=== PATIENT | female | born 1960 | race Caucasian/White ===

== ENCOUNTER 2020-11-06 15:45 | Outpatient (CLI) | payer BC, SELFPAY | END 2020-11-06 15:46 | disposition home or self-care (01) | LOC: ANHCOVIDVC 15:45 | PROVIDERS: PCP Internal Medicine | DX: Z23 Encounter for immunization (principal) | CPT/HCPCS: 0001A; 91300 ==

== ENCOUNTER 2020-11-14 13:02 | Outpatient (CLI) | payer BC, SELFPAY ==
--- NOTE | ~2020-11-14 | CT_ITS ---
EXAMINATION: CT lung screening DATE: 11/14/2020 13:20 INDICATION: Personal history of tobacco dependence TECHNIQUE: Computed tomography (CT) of the chest was performed without intravenous contrast. The dose -length product was 140.67 mGy-cm. Automated exposure control and iterative reconstruction technique were employed. COMPARISON: Chest x-ray dated 11/16/2011 FINDINGS: Heart size is normal. No significant pleural or pericardial effusion. No thoracic lymphaden opathy. There is atherosclerosis of the aorta and coronary arteries. No significant pleural or perica rdial effusion. The upper abdomen is unremarkable. There is emphysema. There is lingular atelectasis/ scarring. There is right lower lobe atelectasis. There is a 3 mm nodule left upper lobe, image 38. Th ere are a few additional 2-3 mm left upper lobe nodules. No endobronchial lesion. No focal consolidat ion. No pneumothorax. IMPRESSION: 1. Lung-RADS category 2: Benign appearance or behavior. Continue annual screening with noncontrast lo w-dose chest CT in 12 months. Reviewed, dictated and finalized at location A. [facility] [employer]IX[employer] OPERATOR IMPRESSION: 1. Lung-RADS category 2: Benign appearance or behavior. Continue annual screeni ng with noncontrast low-dose chest CT in 12 months.
== END 2020-11-14 13:03 | disposition home or self-care (01) ==
LOC: ANHIMG 13:03
PROVIDERS: PCP Internal Medicine; Visit Provider Internal Medicine
DX: Z87.891 Personal history of nicotine dependence (principal)
CPT/HCPCS: 71271

== ENCOUNTER 2020-11-27 15:43 | Outpatient (CLI) | payer BC, SELFPAY | END 2020-11-27 15:44 | disposition home or self-care (01) | LOC: ANHCOVIDVC 15:43 | PROVIDERS: PCP Internal Medicine | DX: Z23 Encounter for immunization (principal) | CPT/HCPCS: 0002A; 91300 ==

== ENCOUNTER 2024-09-04 18:43 | Observation (INO) | payer BC, SELFPAY ==
--- NOTE | ~2024-09-04 | CT_ITS ---
EXAMINATION: CTA chest PE protocol DATE: 09/04/2024 20:02 INDICATION: hyoxia TECHNIQUE: Computed tomography angiography (CTA) of the chest was performed with 200 mL Omnipaque-350 intravenous contrast timed to evaluate the pulmonary arteries. Incomplete field of view of the chest required repeat imaging. The abdomen and pelvis was accidentally scanned and will be reported here. Coronal maximum intensity projection 3D-reconstructions were created by the technologist. The dose-le ngth product (DLP) was 1322.44 mGy-cm. Automated exposure control and iterative reconstruction techni que were employed. COMPARISON: CT lung screening 11/14/2020. FINDINGS: CHEST: Lung parenchyma and airways: Emphysematous change. Mild motion artifact. Scattered areas of tree-in-b ud opacities are present, most notably in the lower lobes. There is bronchial wall thickening and ate lectasis/scar in the right lower lobe. Scattered areas of bronchial debris. Pleura: Unremarkable. Thoracic inlet, axillae and chest wall: No thyroid or soft tissue mass. Thoracic aorta: No significant dilation. No dissection. Mild arch calcification. Mediastinum: Normal. Heart and pericardium: Normal. Coronary artery calcifications: Moderate. Thoracic bones: No acute osseous finding. Pulmonary arteries: Study quality: Adequate. No pulmonary emboli detected. ABDOMEN/PELVIS: Liver: Normal. Biliary/Gallbladder: Gallbladder is normal. No bile duct dilation. Pancreas: No mass or duct dilation. Spleen: Normal. Adrenals:No mass. Kidneys: No suspicious mass, obstructing stone, or hydronephrosis. GI tract: No small or large bowel dilation. Normal appendix. Diverticulosis without diverticulitis. Mesentery/Peritoneum: No ascites, mass, or free air. Retroperitoneum: No mass. Atherosclerotic abdominal aortic and/or arterial calcifications. Pelvis: Pelvic organs are within normal limits. Soft Tissues: Small uncomplicated fat-containing umbilical and bilateral inguinal hernias Abdominopelvic bones: Multilevel moderate degenerative disc disease and moderate facet arthropathy. No severe central canal or neural foraminal narrowing. IMPRESSION: No CT evidence of acute pulmonary embolus. Scattered areas of tree-in-bud opacities and bronchial wall thickening, likely representing chronic i nflammatory/infectious change. Scattered bronchial debris may represent mucoid impaction or aspiration. Reviewed, dictated and finalized at location K. [employer] IMPRESSION: No CT evidence of acute pulmonary embolus. Scattered areas of tree-in-bud opacities and bronchial wall thickening, likely representing chronic inflammatory/infectious change. Scattered bronchial debris may represent mucoid impaction or aspiration.
[2024-09-04 18:51] VITALS: BP 132/84; PULSE 120; RESP 22; TEMP 36.6; O2SAT 93
--- NOTE | 2024-09-04 18:54 | ECG_ITS ---
Test Date: 2024-09-04 19:04:07 Measurements Intervals [place] Rate: 113 P: 61 KS: 152 QRS: 49 QRSD: 85 T: 67 QT: 330 QTc: 453 Interpretive Statements SINUS TACHYCARDIA POSSIBLE LEFT ATRIAL ENLARGEMENT [-0.1mV P WAVE IN V1/V2] LOW QRS VOLTAGE IN EXTREMITY LEADS [QRS DEFLECTION < 0.5 mV IN LIMB LEADS] POSSIBLE ANTERIOR MYOCARDIAL INFARCTION , OF INDETERMINATE AGE [30 ms Q WAVE IN V3/V4, OR R < 0.2 mV IN V4] No previous ECG available for comparison Electronically Signed On 09-04-2024 22:36:05 [employer]ING [employer]IM[employer] by Luis Harrison M.D.
--- NOTE | 2024-09-04 18:55 | ED.SOB ---
HPI - SOB/Dyspnea General Chief Complaint: Shortness of Breath/Dyspnea <May Olvera PA-C - Last Filed: 09/04/24 18:59> Stated Complaint: hypoxia <May Olvera PA-C - Last Filed: 09/04/24 18:59> Time Seen by Provider: 09/04/24 20:16 <aMy Olvera PA-C - Last Filed: 09/04/24 18:59> Focused HPI: 64-year-old female with history of hypertension, hyperlipidemia chronic smoking presents to the emergency department from local urgent care for hypoxia. Patient states for 1 week she has had a productive cough with white sputum and shortness of breath. She presented to urgent care today was found to be hypoxic. States she received 2 breathing treatments with minimal improvement was advised to come to the ED for further evaluation. She states she has been smoking approximately 1 pack a day for the past 4 years. No formal diagnosis of COPD or asthma. She denies lower extremity edema or history of CHF. Admits to remote history of cardiac catheterization. States she has had 2 cataract surgeries in the past 2 months. GENERAL: Well-appearing, well-nourished, and in no acute distress. HEAD: Normocephalic, atraumatic. CHEST: Clear to auscultation. ?No respiratory distress. Satting 88% on room air in speaking in full sentences HEART: Regular rate and rhythm.? NEURO: ?Alert and oriented x3. Patient was placed on 3 L nasal cannula in triage satting 94%. Patient screened in triage and initial orders placed.? ?Additional care and disposition to be based upon?diagnostic testing and treatment. <May Olvera PA-C - Last Filed: 09/04/24 18:59> History of Present Illness HPI Narrative: Agree with HPI. <Daniel Medina MD - Last Filed: 09/04/24 22:11> Related Data Home Medications: Home Medications ?Medication ?Instructions ?Recorded ?Confirmed ?Last Taken ?Type aspirin 81 mg tablet,delayed 81 mg PO DAILY 07/28/19 02/23/24 08/14/19 History release (Abdelrahman Low Dose Aspirin) fluticasone propionate 50 2 spray intranasal DAILY PRN 08/17/23 02/23/24 Unknown History mcg/actuation nasal spray,suspension (Allergy Relief (fluticasone)) <May Olvera PA-C - Last Filed: 09/04/24 18:59> Allergies/Adverse Reactions: Allergies Allergy/AdvReac Type Severity Reaction Status Date / Time No Known Allergies Allergy Verified 02/23/24 13:22 <May Olvera PA-C - Last Filed: 09/04/24 18:59> Review of Systems Review of Systems: All systems reviewed & are unremarkable except as noted in HPI and below <Daniel Medina MD - Last Filed: 09/04/24 22:11> Constitutional: Constitutional: Reports no additional constitutional complaints <Daniel Medina MD - Last Filed: 09/04/24 22:11> Cardiovascular: Cardiovascular: Reports no additional cardiovascular complaints <Daniel Medina MD - Last Filed: 09/04/24 22:11> Respiratory: Respiratory: Reports chest congestion, Reports cough, Reports dyspnea and Reports wheezing <Daniel Medina MD - Last Filed: 09/04/24 22:11> Gastrointestinal: Gastrointestinal: Reports no additional gastrointestinal complaints <Daniel Medina MD - Last Filed: 09/04/24 22:11> Musculoskeletal: Musculoskeletal: Reports no additional musculoskeletal complaints <Daniel Medina MD - Last Filed: 09/04/24 22:11> [facility] Past Medical History Medical History: Medical History (Updated 09/04/24 @ 22:11 by Daniel Medina MD) Dyslipidemia Hypertension <May Olvera PA-C - Last Filed: 09/04/24 18:59> Surgical History Surgical History: Surgical History S/P arthroscopy of left knee H/O cardiac catheterization <May Olvera PA-C - Last Filed: 09/04/24 18:59> Family History Family History: Family History Father Family history of heart disease in male family member before age 55 Family history of throat cancer Hypertension Mother Hypertension History of blood clots Sibling Hypertension Sibling Hypertension <May Olvera PA-C - Last Filed: 09/04/24 18:59> Social History Social History: Social History Social History: 2-3 drinks every other day Smoking packs per day: 0.5 Smoking cigarettes per day: 10.0 Years smoked: 43 Smoking pack-years: 21.50 Smoking status: Current some day smoker Tobacco type: cigarettes Second hand tobacco smoke exposure: Yes Alcohol intake: current Drinks per week: 2 Substance use: never Substance use type: does not use Lack of Transportation: No Lack of Food: Never True Current Housing: I Have Housing Concerned About Future Housing: No Difficulty Paying Gas/Electric Bills: No Difficulty Paying for Meds: No Currently Unemployed: No Education: Trade/Vocational Certificate Difficulty w/ Childcare or Family Care: No Gender identity (if verbalized by the patient): Female Spiritual care concerns: No Agree to blood products: Yes <May Olvera PA-C - Last Filed: 09/04/24 18:59> Exam Narrative: GENERAL: Fatigued-appearing, well-nourished, and in no acute distress. HEAD: Normocephalic, atraumatic. ENT: Mucous membranes moist. NECK: Supple. CHEST: diffuse wheezing. No respiratory distress. HEART: tachycardic regular. Normal peripheral pulses. ABDOMEN: Soft, nontender, nondistended. EXTREMITIES: Normal range of motion. No edema. SKIN: Warm, dry, no rash. NEURO: Alert and oriented x3. PSYCH: Normal mood and affect. <Daniel Medina MD - Last Filed: 09/04/24 22:11> Course Course Emergency Course: patient resting comfortably. Informed of results. Admit to hospitalist service. IV antibiotics for pneumonia. <Daniel Medina MD - Last Filed: 09/04/24 22:11> Vital Signs Vital signs: Vital Signs Temperature 97.9 F 09/04/24 18:51 Pulse Rate 120 H 09/04/24 18:51 Respiratory Rate 22 H 09/04/24 18:51 Blood Pressure 132/84 09/04/24 18:51 Pulse Oximetry 93 09/04/24 18:51 Temperature 97.9 F 09/04/24 18:51 Pulse Rate 114 H 09/04/24 21:56 Respiratory Rate 18 09/04/24 21:56 Blood Pressure 138/78 09/04/24 21:56 Pulse Oximetry 96 09/04/24 21:56 Oxygen Delivery Room Air 09/04/24 21:09 Oxygen Flow Rate 3 09/04/24 19:00 <May Olvera PA-C - Last Filed: 09/04/24 18:59> Vital Signs Temperature 97.9 F 09/04/24 18:51 Pulse Rate 120 H 09/04/24 18:51 Respiratory Rate 22 H 09/04/24 18:51 Blood Pressure 132/84 09/04/24 18:51 Pulse Oximetry 93 09/04/24 18:51 Temperature 97.9 F 09/04/24 18:51 Pulse Rate 114 H 09/04/24 21:56 Respiratory Rate 18 09/04/24 21:56 Blood Pressure 138/78 09/04/24 21:56 Pulse Oximetry 96 09/04/24 21:56 Oxygen Delivery Room Air 09/04/24 21:09 Oxygen Flow Rate 3 09/04/24 19:00 <Daniel Medina MD - Last Filed: 09/04/24 22:11> MDM - SOB/Dyspnea Lab Data Result diagrams: 09/04/24 19:14 09/04/24 19:14 <May Olvera PA-C - Last Filed: 09/04/24 18:59> Labs: Lab Results 09/04/24 09/04/24 Range/Units 19:14 20:10 WBC 12.8 H (4.5-10.0) K/mm3 RBC 5.33 (4.2-5.4) M/mm3 Hgb 18.1 H D (12.0-15.0) g/dL Hct 51.5 H (37.0-47.0) % MCV 96.6 (80-100) fl MCH 34.0 (26-34) pg MCHC 35.1 (32-36) g/dl RDW 12.6 (11.5-14.5) % Plt Count 381 H (150-375) k/mm3 MPV 9.8 (7.4-10.4) fl Immature Gran % (Auto) 0.4 (0-0.5) % Neut % (Auto) 72.4 (45.5-73.1) % Lymph % (Auto) 16.8 L (18.3-44.2) % [place] % (Auto) 6.6 (2.6-8.5) % Eos % (Auto) 3.4 (0-4.4) % Baso % (Auto) 0.4 (0.2-1.2) % Lymph # (Auto) 2.14 (0.9-3.2) K/mm3 [place] # (Auto) 0.8 H (0.1-0.6) K/mm3 Eos # (Auto) 0.4 H (0-0.3) K/mm3 Baso # (Auto) 0.1 (0.0-0.1) K/mm3 Abs Immat Gran (auto) 0.05 H (0.00-0.031) K/mm3 Absolute Neuts (auto) 9.3 H (1.3-6.7) K/mm3 Absolute Nucleated RBC 0.000 (0.0-0.012) K/mm3 Nucleated RBC % 0.0 (0.0-0.2) % PT 13.1 (11.1-14.7) Seconds INR 0.9 APTT 24.7 (22.3-36.8) Seconds Sodium 135 L (137-145) mmol/L Potassium 3.0 L (3.4-5.0) mmol/L Chloride 97 L (98-107) mmol/L Carbon Dioxide 28 (22-30) mmol/L Anion Gap 10 (4-12) mmol/L BUN 12 D (7-17) mg/dL Creatinine 0.70 (0.7-1.0) mg/dL Estim Creat Clear Calc 76 ml/min Estimated GFR > 60 (59 - ) Glucose 154 H (65-110) mg/dL Calcium 10.2 (8.4-10.2) mg/dL Total Bilirubin 0.8 (0.2-1.3) mg/dL AST 53 H (14-36) U/L ALT 63 H (6-35) U/L Alkaline Phosphatase 136 H (38-126) U/L Troponin I < 0.012 (0.000-0.034) ng/mL NT-Pro-B Natriuret Pep 66 (19.9-100) pg/mL Total Protein 9.0 H (6.3-8.2) g/dL Albumin 4.9 (3.5-5.1) g/dL Influenza A (RT-PCR) Negative (Negative) Influenza B (RT-PCR) Negative (Negative) RSV (RT-PCR) Negative (Negative) SARS-CoV-2 RNA (RT-PCR) Negative (Negative) <May Olvera PA-C - Last Filed: 09/04/24 18:59> Lab Results 09/04/24 09/04/24 Range/Units 19:14 20:10 WBC 12.8 H (4.5-10.0) K/mm3 RBC 5.33 (4.2-5.4) M/mm3 Hgb 18.1 H D (12.0-15.0) g/dL Hct 51.5 H (37.0-47.0) % MCV 96.6 (80-100) fl MCH 34.0 (26-34) pg MCHC 35.1 (32-36) g/dl RDW 12.6 (11.5-14.5) % Plt Count 381 H (150-375) k/mm3 MPV 9.8 (7.4-10.4) fl Immature Gran % (Auto) 0.4 (0-0.5) % Neut % (Auto) 72.4 (45.5-73.1) % Lymph % (Auto) 16.8 L (18.3-44.2) % [place] % (Auto) 6.6 (2.6-8.5) % Eos % (Auto) 3.4 (0-4.4) % Baso % (Auto) 0.4 (0.2-1.2) % Lymph # (Auto) 2.14 (0.9-3.2) K/mm3 [place] # (Auto) 0.8 H (0.1-0.6) K/mm3 Eos # (Auto) 0.4 H (0-0.3) K/mm3 Baso # (Auto) 0.1 (0.0-0.1) K/mm3 Abs Immat Gran (auto) 0.05 H (0.00-0.031) K/mm3 Absolute Neuts (auto) 9.3 H (1.3-6.7) K/mm3 Absolute Nucleated RBC 0.000 (0.0-0.012) K/mm3 Nucleated RBC % 0.0 (0.0-0.2) % PT 13.1 (11.1-14.7) Seconds INR 0.9 APTT 24.7 (22.3-36.8) Seconds Sodium 135 L (137-145) mmol/L Potassium 3.0 L (3.4-5.0) mmol/L Chloride 97 L (98-107) mmol/L Carbon Dioxide 28 (22-30) mmol/L Anion Gap 10 (4-12) mmol/L BUN 12 D (7-17) mg/dL Creatinine 0.70 (0.7-1.0) mg/dL Estim Creat Clear Calc 76 ml/min Estimated GFR > 60 (59 - ) Glucose 154 H (65-110) mg/dL Calcium 10.2 (8.4-10.2) mg/dL Total Bilirubin 0.8 (0.2-1.3) mg/dL AST 53 H (14-36) U/L ALT 63 H (6-35) U/L Alkaline Phosphatase 136 H (38-126) U/L Troponin I < 0.012 (0.000-0.034) ng/mL NT-Pro-B Natriuret Pep 66 (19.9-100) pg/mL Total Protein 9.0 H (6.3-8.2) g/dL Albumin 4.9 (3.5-5.1) g/dL Influenza A (RT-PCR) Negative (Negative) Influenza B (RT-PCR) Negative (Negative) RSV (RT-PCR) Negative (Negative) SARS-CoV-2 RNA (RT-PCR) Negative (Negative) <Daniel Medina MD - Last Filed: 09/04/24 22:11> ABG Data ABG results: 09/04/24 20:41 Puncture Site Right radial ABG pH 7.466 H ABG pCO2 40.5 ABG pO2 48.6 L* ABG PO2/FiO2 Ratio 2.31 ABG HCO3 28.5 H ABG O2 Saturation 86.6 L* ABG O2 Content 20.1 ABG Base Excess 4.5 A-a Gradient 52.6 Oxyhemoglobin 85.0 L* Total Hemoglobin 16.9 O2 Delivery Device Not Reportable O2 Liters/Min Not Reportable FiO2 21 <May Olvera PA-C - Last Filed: 09/04/24 18:59> 09/04/24 20:41 Puncture Site Right radial ABG pH 7.466 H ABG pCO2 40.5 ABG pO2 48.6 L* ABG PO2/FiO2 Ratio 2.31 ABG HCO3 28.5 H ABG O2 Saturation 86.6 L* ABG O2 Content 20.1 ABG Base Excess 4.5 A-a Gradient 52.6 Oxyhemoglobin 85.0 L* Total Hemoglobin 16.9 O2 Delivery Device Not Reportable O2 Liters/Min Not Reportable FiO2 21 <Daniel Medina MD - Last Filed: 09/04/24 22:11> Imaging Data Radiologist's impression: ITS Impressions Chest CTA 09/04/24 20:18 IMPRESSION: No CT evidence of acute pulmonary embolus. Scattered areas of tree-in-bud opacities and bronchial wall thickening, likely representing chronic inflammatory/infectious change. Scattered bronchial debris may represent mucoid impaction or aspiration. <Daniel Medina MD - Last Filed: 09/04/24 22:11> ECG Data EKG #1: ECG completion date: 09/04/24 <Daniel Medina MD - Last Filed: 09/04/24 22:11> ECG completion time: 19:04 <Daniel Medina MD - Last Filed: 09/04/24 22:11> EKG Interpretation: tachycardia (113), sinus rhythm, non-specific ST changes, normal QRS, normal QT and NL axis <Daniel Medina MD - Last Filed: 09/04/24 22:11> Discharge Plan Discharge Clinical Impression: Pneumonia, Hypoxia <May Olvera PA-C - Last Filed: 09/04/24 18:59> Patient Disposition: Still a Patient <May Olvera PA-C - Last Filed: 09/04/24 18:59> Condition: Stable <May Olvera PA-C - Last Filed: 09/04/24 18:59> Patient Language: Irish <ANGE Conte Last Filed: 09/04/24 18:59> Prescriptions: No Action fluticasone propionate [Allergy Relief (fluticasone)] 50 mcg/actuation spray,suspension 2 spray intranasal DAILY PRN Rx Instructions: administer into each nostril aspirin [Abdelrahman Low Dose Aspirin] 81 mg Tablet,Delayed Release (Dr/Ec) 81 mg PO DAILY omega-3 fatty acids [Fish Oil Concentrate] 1,000 mg capsule 1,000 mg PO DAILY Qty: 90 1RF pravastatin 80 mg tablet See Rx Instructions .ROUTE .COMPLEX Qty: 90 0RF Dose Instruction: Take 1 tablet by mouth once daily Rx Instructions: Take 1 tablet by mouth once daily amlodipine 10 mg tablet See Rx Instructions .ROUTE .COMPLEX Qty: 90 0RF Dose Instruction: Take 1 tablet by mouth once daily Rx Instructions: Take 1 tablet by mouth once daily irbesartan-hydrochlorothiazide 300-12.5 mg tablet See Rx Instructions .ROUTE .COMPLEX Qty: 30 0RF Dose Instruction: Take 1 tablet by mouth once daily Rx Instructions: Take 1 tablet by mouth once daily <May Olvera PA-C - Last Filed: 09/04/24 18:59> Follow-up/Referrals: Caroline Garcia APRN [Primary Care Provider] - <May Olvera PA-C - Last Filed: 09/04/24 18:59>
[2024-09-04 18:56] VITALS: O2SAT 93
[2024-09-04 19:00] VITALS: O2SAT 94
[2024-09-04 19:20] LABS: Basophils Absolute Auto 0.1 K/mm3 (0.0-0.1); Basophils Percent Auto 0.4 % (0.2-1.2); Eosinophils Absolute Auto 0.4 K/mm3 (0-0.3); Eosinophils Percent Auto 3.4 % (0-4.4); Hematocrit 51.5 % (37.0-47.0); Hemoglobin 18.1 g/dL (12.0-15.0); Immature Granulocyte Absolute 0.05 K/mm3 (0.00-0.031); Immature Granulocyte Percent A 0.4 % (0-0.5); Lymphocytes Absolute Auto 2.14 K/mm3 (0.9-3.2); Lymphocytes Percent Auto 16.8 % (18.3-44.2); Mean Corpuscular HGB Conc 35.1 g/dl (32-36); Mean Corpuscular Volume 96.6 fl (80-100); Mean Platelet Volume 9.8 fl (7.4-10.4); Monocytes Absolute Auto 0.8 K/mm3 (0.1-0.6); Monocytes Percent Auto 6.6 % (2.6-8.5); Neutrophils Absolute Auto 9.3 K/mm3 (1.3-6.7); Neutrophils Percent Auto 72.4 % (45.5-73.1); Platelet Count Result 381 k/mm3 (150-375); Red Blood Count 5.33 M/mm3 (4.2-5.4); Red Cell Distribution Width 12.6 % (11.5-14.5); White Blood Count 12.8 K/mm3 (4.5-10.0)
[2024-09-04 19:29] LABS: Alanine Aminotransferase 63 U/L (6-35); Albumin Level 4.9 g/dL (3.5-5.1); Alkaline Phosphatase 136 U/L (38-126); Anion Gap 10 mmol/L (4-12); Aspartate Amino Transferase 53 U/L (14-36); Bilirubin,Total 0.8 mg/dL (0.2-1.3); Blood Urea Nitrogen 12 mg/dL (7-17); Calcium 10.2 mg/dL (8.4-10.2); Carbon Dioxide 28 mmol/L (22-30); Chloride 97 mmol/L (98-107); Estimated CRCL calculation 76 ml/min; Estimated Glomerular Filt Rate > 60; Glucose 154 mg/dL (65-110); Sodium 135 mmol/L (137-145)
[2024-09-04 19:31] LABS: INR 0.9; Partial Thromboplastin Time 24.7 Seconds (22.3-36.8); Prothrombin Time 13.1 Seconds (11.1-14.7)
[2024-09-04 19:40] LABS: NT Pro B Type Natriuretic Pept 66 pg/mL (19.9-100); Troponin I < 0.012 ng/mL (0.000-0.034)
[2024-09-04] MEDS: methylPREDNISolone SOD SUCC 125 MG VIAL IV PUSH (20:32)
[2024-09-04] MEDS: IPRATROPIUM 0.5 MG/ALBUTEROL SULFATE 2.5 MG AMPUL.NEB 3 ML INHALATION (20:42)
[2024-09-04 20:52] LABS: Influenza A QL RT-PCR Negative (Negative); Influenza B QL RT-PCR Negative (Negative); RSV RNA, RT-PCR Negative (Negative); SARS-CoV-2 RNA PCR Negative (Negative)
[2024-09-04] MEDS: ALBUTEROL SULFATE NEB 2.5 MG/3 ML INH 10 MG INHALATION (20:58)
[2024-09-04 21:04] LABS: Alveolar/Arterial O2 Gradient 52.6 mmHg; Base Excess ABG 4.5 mEq/l (+/-2.0); Fractional Inspired Oxygen 21 %; HCO3 ABG 28.5 mEq/l (22.0-26.0); Oxygen Content ABG 20.1 %vol (16.0-22.0); PCO2 ABG 40.5 mmHg (35.0-45.0); PO2 FiO2 Ratio Arterial Blood 2.31 %; Total Hemoglobin 16.9 g/dL (12.0-18.0); pH ABG 7.466 (7.350-7.450)
[2024-09-04 21:07] LABS: Oxygen Saturation ABG 86.6 % (95.0-100.0); PO2 ABG 48.6 mmHg (80.0-100.0)
[2024-09-04 21:08] LABS: Modified Allen's Test Pass; Site Drawn RIGHT RADIAL
[2024-09-04 21:09] VITALS: O2SAT 93
[2024-09-04] MEDS: POTASSIUM CHLORIDE 20 MEQ ER TABLET 40 MEQ PO (21:55)
[2024-09-04 21:56] VITALS: BP 138/78; PULSE 114; RESP 18; O2SAT 96
[2024-09-04] MEDS: AZITHROMYCIN 500 MG/NS 250 ML 500 MG/250 ML BAG 250 MG IVPB (22:29)
[2024-09-04 23:30] LABS: Device ROOM AIR
[2024-09-04 23:50] VITALS: BP 126/73; PULSE 111; RESP 20; TEMP 36.6; O2SAT 91
--- NOTE | 2024-09-04 23:50 | ADMGEN ---
This patient, Rula Watkins, was admitted to [facility] Surg Room 320-01. Patient/family oriented to hospital policies and general routines including ID bracelet, bed and alarms, visiting hours, pain management, procedures, bathroom and other care routines, personal items, smoking policy, room service/diet, and visiting hours. Information on how to activate the Rapid Response Team has been discussed. Patient/Family are encouraged to report perceived risks to care and to ask questions if they do not understand what they are told or what they should do.
--- NOTE | 2024-09-04 23:54 | PM.IMHP ---
H&P: HPI History of Present Illness Date/Time: 09/04/24 21:30 Chief Complaint: Cough, congestion, shortness of breath. Narrative: This is a 64-year-old female smoker with hypertension, dyslipidemia, and prediabetes to presented to the emergency department via private vehicle for evaluation of cough, congestion, and shortness of breath. She gives a 1 week history of head congestion, cough productive of clear to whitish colored sputum, wheezing, dyspnea on exertion, generalized headache, and poor appetite. She has been taking [id number] Coricidin, Mucinex, and Mucinex DM without much improvement her symptoms. Today she went to urgent care, was hypoxic, and was directed to the ED. She denies fever, chills, sweats, pleuritic pain, palpitations, nausea, vomiting, and diarrhea. has had similar symptoms. She has no known history of asthma or COPD. In the ED: She was afebrile on arrival with stable blood pressures. She is currently on 3 L nasal cannula with an SpO2 of 91%. Labs were significant for a WBC count of 12.8, hemoglobin 18.1, sodium 135, potassium 3.0, chloride 97, glucose 154, AST 53, ALT 63, alkaline phosphatase 136. She tested negative for influenza, RSV, and COVID. Chest CTA showed no evidence of acute pulmonary embolus but did show scattered areas of tree-in-bud opacities and bronchial wall thickening and scattered bronchial debris which may represent mucoid impaction for aspiration. She received a continuous nebulizer treatment, methylprednisolone 125 mg, azithromycin 500 mg, delete ceftriaxone 1 g, and potassium chloride 40 mg. She is being admitted in this setting for further treatment. Review of Systems Review of Systems: 12 systems were reviewed and are negative except for as per HPI. [facility] Past Medical History Medical History (Updated 09/05/24 @ 03:08 by Che Zapien PA-C) Hyperlipidemia Prediabetes Spontaneous pneumothorax Nicotine dependence Dyslipidemia Hypertension Surgical History Surgical History (Updated 09/05/24 @ 03:03 by Che Zapien PA-C) History of arthroscopy of left knee History of cardiac catheterization Family History Family History Father Family history of heart disease in male family member before age 55 Family history of throat cancer Hypertension Mother History of blood clots Hypertension Diverticulitis Sibling Hypertension Sibling Hypertension Social History Social History (Updated 09/05/24 @ 03:04 by Che Zapien PA-C) Social History: Surrogate medical decision maker: Jose Francisco Watkins, spouse. Code status: Full code. Smoking packs per day: 1 Smoking cigarettes per day: 20.0 Years smoked: 40 Smoking pack-years: 40.00 Smoking status: Current every day smoker Tobacco type: cigarettes Second hand tobacco smoke exposure: Yes Alcohol intake: current Drinks per week: 28 Substance use: current Substance use type: marijuana Other substance usage details: 08/30/2024 Do You Feel Safe in your Home?: Yes Lack of Transportation: No Lack of Food: Never True Current Housing: I Have Housing Concerned About Future Housing: No Difficulty Paying Gas/Electric Bills: No Difficulty Paying for Meds: No Currently Unemployed: No Education: Associate Degree Difficulty w/ Childcare or Family Care: No Spiritual care concerns: No Agree to blood products: Yes Meds Home Medications and Allergies Home Medications ?Medication ?Instructions ?Recorded ?Confirmed ?Type aspirin 81 mg tablet,delayed 81 mg PO DAILY 07/28/19 09/05/24 History release (Abdelrahman Low Dose Aspirin) omega-3 fatty acids 1,000 mg 1,000 mg PO DAILY #90 caps 11/22/19 09/05/24 Rx capsule (Fish Oil Concentrate) fluticasone propionate 50 2 spray intranasal DAILY PRN nasal 08/17/23 09/05/24 History mcg/actuation nasal congestion spray,suspension (Allergy Relief (fluticasone)) amlodipine 10 mg tablet See Rx Instructions .Route 07/10/24 09/05/24 Rx .COMPLEX #90 tabs pravastatin 80 mg tablet See Rx Instructions .Route 07/10/24 09/05/24 Rx .COMPLEX #90 tabs irbesartan 300 See Rx Instructions .Route 08/09/24 09/05/24 Rx mg-hydrochlorothiazide 12.5 mg .COMPLEX #30 tabs tablet carboxymethylcellulose sodium 1 % 1 drp RIGHT EYE BID-TID PRN dry 09/05/24 09/05/24 History eye drops (Artificial Tears eye(s) (carboxymethylcellulose)) prednisolone acetate 1 % eye 1 drp RIGHT EYE TID 09/05/24 09/05/24 History drops,suspension Allergies Allergy/AdvReac Type Severity Reaction Status Date / Time No Known Allergies Allergy Verified 02/23/24 13:22 Vital Signs Vital Signs - 24 hr 09/04/24 18:51 09/04/24 18:56 09/04/24 19:00 Temperature 97.9 F Pulse Rate 120 H Respiratory Rate 22 H Blood Pressure 132/84 Pulse Oximetry 93 93 94 Oxygen Delivery Nasal Cannula Nasal Cannula Oxygen Flow Rate 2 3 09/04/24 21:09 09/04/24 21:56 Temperature Pulse Rate 114 H Respiratory Rate 18 Blood Pressure 138/78 Pulse Oximetry 93 96 Oxygen Delivery Room Air Oxygen Flow Rate Exam Narrative: General: Mildly ill-appearing female sitting up in bed in no distress. Weight: 84.4 kg. BMI: 30.0. HEENT: PERRL, EOMI. Sclera anicteric. Conjunctiva mildly injected. Tacky mucous membranes. Oropharynx is erythematous without exudates. Neck: Supple. No lymphadenopathy or JVD. Respiratory: Respirations are nonlabored and she is speaking in full sentences. Lung sounds are significantly diminished throughout with scattered expiratory wheezing and occasional rales. Cardiovascular: Tachycardic with normal S1-S2. Gastrointestinal: Abdomen is soft, nontender, and nondistended with positive bowel sounds. Skin: Warm and dry. Normal capillary refill. Extremities: No cyanosis, clubbing, or edema. Radial and pedal pulses intact. No palpable knots or cords. Negative Remington sign bilaterally Neurological: Alert. Cranial nerves 2-12 are grossly intact. No gross focal deficits to casual conversation. Psychiatric: Pleasant and cooperative with normal mood and affect. Judgment and insight intact. H&P: Results Labs Labs: Short CBC 09/04/24 Range/Units 19:14 WBC 12.8 H (4.5-10.0) K/mm3 Hgb 18.1 H D (12.0-15.0) g/dL Hct 51.5 H (37.0-47.0) % Plt Count 381 H (150-375) k/mm3 BMP 09/04/24 19:14 Sodium 135 L Potassium 3.0 L Chloride 97 L Carbon Dioxide 28 BUN 12 D Creatinine 0.70 Glucose 154 H Calcium 10.2 Cardiac Enzymes 09/04/24 Range/Units 19:14 Troponin I < 0.012 (0.000-0.034) ng/mL Liver Function 09/04/24 Range/Units 19:14 Total Bilirubin 0.8 (0.2-1.3) mg/dL AST 53 H (14-36) U/L ALT 63 H (6-35) U/L Alkaline Phosphatase 136 H (38-126) U/L Albumin 4.9 (3.5-5.1) g/dL Impressions Chest CTA 09/04/24 20:18 IMPRESSION: No CT evidence of acute pulmonary embolus. Scattered areas of tree-in-bud opacities and bronchial wall thickening, likely representing chronic inflammatory/infectious change. Scattered bronchial debris may represent mucoid impaction or aspiration. Assessment and Plan Assessment and plan (1) Acute bronchitis: Code(s): J20.9 - Acute bronchitis, unspecified Status: Acute (2) Suspected chronic obstructive pulmonary disease based on initial evaluation: Code(s): J44.9 - Chronic obstructive pulmonary disease, unspecified Status: Acute (3) Mild dehydration: Code(s): E86.0 - Dehydration Status: Acute (4) Hypokalemia: Code(s): E87.6 - Hypokalemia Status: Acute (5) Elevated LFTs: Code(s): R79.89 - Other specified abnormal findings of blood chemistry Status: Acute (6) Polycythemia: Code(s): D75.1 - Secondary polycythemia Status: Acute (7) Prediabetes: Code(s): R73.03 - Prediabetes Status: Acute (8) Hypertension: Code(s): I10 - Essential (primary) hypertension Status: Acute (9) Hyperlipidemia: Code(s): E78.5 - Hyperlipidemia, unspecified Status: Acute (10) Tobacco dependence: Code(s): F17.200 - Nicotine dependence, unspecified, uncomplicated Status: Acute (11) Hypoxia: Code(s): R09.02 - Hypoxemia Status: Acute Plan The patient presented to the emergency department for evaluation of cough, congestion, and shortness of breath as detailed in HPI. Labs, imaging, EKG, and all reports were personally reviewed. She is delighted long-time smoker and she likely has underlying COPD for which she will need formal outpatient pulmonary function test. Her history is consistent with an acute bronchitis, probably viral although her influenza, RSV, and COVID were negative. Continue with empiric antibiotics for now pending sputum culture. Continue scheduled bronchodilators and methylprednisolone. Cornet and Mucinex ordered to help mobilize secretions. Smoking cessation is imperative and was discussed. She declines the need for nicotine patch at this moment. She looks dry on exam and by history and will be hydrated overnight. Potassium is low, was replaced, and will be monitored. Polycythemia may very well be due to chronic hypoxia although she is likely a bit hemoconcentrated due to mild dehydration. ABG consistent with a venous draw but she will need a home oxygen 30 prior to discharge. Wean oxygen as tolerated. AST and ALT are mildly elevated though her abdominal exam is benign and stable just monitor for now. Initiate sliding scale insulin, Accu-Cheks, and hypoglycemic protocol as she is receiving steroids. Check hemoglobin A1c. Blood pressures were reviewed and they are stable. Her home medications will be reviewed and resumed as appropriate. Findings and treatment plan were discussed with the patient. Questions were solicited and answered to satisfaction. The patient's medical management will be taken over by the hospitalist team in a.m. Quality VTE Prophylaxis VTE prophylaxis: pharmacologic ordered The patient has been admitted under observation status. Hospitalist [facility] Advance Care Plan I have confirmed that the patient's Advanced Care Plan is present, code status is documented, or surrogate decision maker is listed in patient medical record.: Yes Medication Reconciliation I have utilized all available resources to obtain, update and review the patients current medications (includes all prescriptions, OTC, herbals, cannabis, and nutritional supplements).: Yes
[2024-09-05] VITALS (11 sets, daily range): BP systolic 125–138; BP diastolic 51–78; PULSE 84–111; RESP 18–20; TEMP 36.3–36.7; O2SAT 91–100
--- NOTE | 2024-09-05 04:03 | PCRCNOTE ---
ABG delayed because the ABG was ordered while the pt was in the waiting room.
[2024-09-05] MEDS: SODIUM CHLORIDE 0.9% IV 1,000 ML 150 ML IV CONT (04:09)
[2024-09-05] MEDS: methylPREDNISolone SOD SUCC 125 MG VIAL 60 MG IV PUSH ×4 (04:09→21:08)
[2024-09-05 05:07] LABS: Strep Group A RT-PCR NOT DETECTED (Negative)
[2024-09-05 05:51] LABS: MRSA (PCR) NOT DETECTED (NOT DETECTE)
[2024-09-05 07:07] LABS: Hemoglobin A1C 6.1 % (<5.7)
[2024-09-05 07:46] LABS: Hematocrit 44.4 % (37.0-47.0); Hemoglobin 15.5 g/dL (12.0-15.0); Mean Corpuscular HGB Conc 34.9 g/dl (32-36); Mean Corpuscular Hemoglobin 33.9 pg (26-34); Mean Corpuscular Volume 97.2 fl (80-100); Mean Platelet Volume 10.4 fl (7.4-10.4); Platelet Count Result 333 k/mm3 (150-375); Red Blood Count 4.57 M/mm3 (4.2-5.4); Red Cell Distribution Width 12.5 % (11.5-14.5)
[2024-09-05 08:04] LABS: Alanine Aminotransferase 44 U/L (6-35); Albumin Level 4.4 g/dL (3.5-5.1); Alkaline Phosphatase 105 U/L (38-126); Anion Gap 6 mmol/L (4-12); Aspartate Amino Transferase 37 U/L (14-36); Bilirubin,Total 0.4 mg/dL (0.2-1.3); Blood Urea Nitrogen 14 mg/dL (7-17); Calcium 9.3 mg/dL (8.4-10.2); Carbon Dioxide 28 mmol/L (22-30); Chloride 100 mmol/L (98-107); Creatine Kinase 207 U/L (30-135); Estimated CRCL calculation 88 ml/min; Estimated Glomerular Filt Rate > 60; Glucose 257 mg/dL (65-110); Potassium 3.2 mmol/L (3.4-5.0); Sodium 134 mmol/L (137-145)
[2024-09-05] MEDS: IPRATROPIUM 0.5 MG/ALBUTEROL SULFATE 2.5 MG AMPUL.NEB 3 ML INHALATION ×3 (08:10→22:00)
[2024-09-05] MEDS: guaiFENesin 12 HR 600 MG TABCR 1200 MG PO ×2 (08:36→21:08)
[2024-09-05] MEDS: OMEGA 3 POLYUNSAT FATTY ACIDS 1 GM CAP PO (08:36)
[2024-09-05] MEDS: PRAVASTATIN SODIUM 20 MG TABLET 80 MG BY MOUTH (08:36)
[2024-09-05] MEDS: POTASSIUM CHLORIDE 20 MEQ ER TABLET 40 MEQ PO (08:36)
[2024-09-05] MEDS: amLODIPine BESYLATE 5 MG TABLET 10 MG BY MOUTH (08:37)
[2024-09-05] MEDS: prednisoLONE ACETATE 1% OPHTH 5 ML 1 DROP RIGHT EYE ×3 (08:37→16:57)
[2024-09-05] MEDS: ASPIRIN 81 MG ENTERIC TABLET PO (08:37)
[2024-09-05] MEDS: ENOXAPARIN 40 MG/0.4 ML SYRINGE SUB-Q (08:37)
[2024-09-05 08:44] LABS: Glucose Point of Care 263 mg/dl (65-105)
--- NOTE | 2024-09-05 11:19 | PCSTNOTE ---
Please refer to the Bedside Swallow Evaluation in the EMR. Please note, silent aspiration cannot be ruled out at bedside.
--- NOTE | 2024-09-05 12:22 | PM.IMPN ---
Progress Note: A&P Assessment and Plan (1) Hypoxia: Code(s): R09.02 - Hypoxemia Status: Acute (2) Acute bronchitis: Code(s): J20.9 - Acute bronchitis, unspecified Status: Acute (3) Suspected chronic obstructive pulmonary disease based on initial evaluation: Code(s): J44.9 - Chronic obstructive pulmonary disease, unspecified Status: Acute (4) Mild dehydration: Code(s): E86.0 - Dehydration Status: Acute (5) Hypokalemia: Code(s): E87.6 - Hypokalemia Status: Acute (6) Elevated LFTs: Code(s): R79.89 - Other specified abnormal findings of blood chemistry Status: Acute (7) Polycythemia: Code(s): D75.1 - Secondary polycythemia Status: Acute (8) Prediabetes: Code(s): R73.03 - Prediabetes Status: Acute (9) Hypertension: Code(s): I10 - Essential (primary) hypertension Status: Acute (10) Hyperlipidemia: Code(s): E78.5 - Hyperlipidemia, unspecified Status: Acute (11) Tobacco dependence: Code(s): F17.200 - Nicotine dependence, unspecified, uncomplicated Status: Acute Plan The patient presented to the emergency department for evaluation of cough, congestion, and shortness of breath. She is delighted long-time smoker and she likely has underlying COPD for which she will need formal outpatient pulmonary function test. Her history is consistent with an acute bronchitis, probably viral although her influenza, RSV, and COVID were negative. Continue with empiric antibiotics for now pending sputum culture. Continue scheduled bronchodilators and methylprednisolone. Cornet and Mucinex ordered to help mobilize secretions. Smoking cessation is imperative and was discussed. She declines the need for nicotine patch at this moment. She looks dry on exam and by history and will be hydrated overnight. Potassium is low, was replaced, and will be monitored. Polycythemia may very well be due to chronic hypoxia although she is likely a bit hemoconcentrated due to mild dehydration. ABG consistent with a venous draw but she will need a home oxygen 30 prior to discharge. Wean oxygen as tolerated. AST and ALT are mildly elevated though her abdominal exam is benign and stable just monitor for now. Initiate sliding scale insulin, Accu-Cheks, and hypoglycemic protocol as she is receiving steroids. Check hemoglobin A1c. Blood pressures were reviewed and they are stable. 09/05/24 - Assuming care. She feels better. She was evaluated by speech and did well and has no restrictions. She was dehydrated on admission but clinically better. Will hold HCTZ. SLIVF. Wean steroids. Narrow abx. Possibly home tomorrow. Subjective Date/time seen: 09/05/24 12:22 Interval history: 64yo female with tobacco abuse, COPD, HTN and pre-DM here for cough and SOB. Assuming care. Chart reviewed. Patient slept well. She denies chest pain. Shortness of breath is better. Cough is productive of whitish sputum. Exam Narrative: AF 97.8 125/78 88 18 94%ra Gen - NARD lying semi recumbent in bed Chest -bibasilar inspiratory crackles. CV - RRR S1/S2. Telemetry showing no significant dysrhythmias Abd - Soft, NT/ND, Positive BS Ext - No pedal edema Psych - Nml mood and affect Skin - Warm and dry Objective Data Vital Signs Vital Signs: Vital Signs - 24 hr 09/04/24 18:51 09/04/24 18:56 09/04/24 19:00 Temperature 97.9 F Pulse Rate 120 H Respiratory Rate 22 H Blood Pressure 132/84 Pulse Oximetry 93 93 94 Oxygen Delivery Nasal Cannula Nasal Cannula Oxygen Flow Rate 2 3 09/04/24 21:09 09/04/24 21:56 09/04/24 23:50 Temperature 97.8 F Pulse Rate 114 H 111 H Respiratory Rate 18 20 Blood Pressure 138/78 126/73 Pulse Oximetry 93 96 91 Oxygen Delivery Room Air Oxygen Flow Rate 09/05/24 00:50 09/05/24 05:07 09/05/24 08:10 Temperature 97.8 F Pulse Rate 111 H 96 87 Respiratory Rate 20 19 18 Blood Pressure 125/78 Pulse Oximetry 91 92 94 Oxygen Delivery Room Air Room Air Oxygen Flow Rate 09/05/24 08:10 09/05/24 08:20 Temperature Pulse Rate 87 88 Respiratory Rate 18 18 Blood Pressure Pulse Oximetry Oxygen Delivery Oxygen Flow Rate Intake/Output Intake/Output: Intake & Output 09/02/24 09/03/24 09/04/24 09/05/24 23:59 23:59 23:59 23:59 Intake Total 300 670 Output Total 700 Balance 300 -30 Meds/Results Medications: Active Medications Generic Name Dose Route Start Last Admin Trade Name Freq PRN Reason Stop Dose Admin Acetaminophen 650 mg 09/04/24 21:56 Acetaminophen 325 Mg Tablet PO Q4H PRN Mild Pain (1-3) or Fever Hydrocodone Bitart/Acetaminophen 1 tab 09/04/24 21:56 Hydrocodone/Acetaminophen (*Crx) 5-325 Mg Tablet PO Q4H PRN Pain Rated 4-6 Albuterol/Ipratropium 3 ml 09/05/24 02:00 09/05/24 08:10 Ipratropium 0.5 Mg/Albuterol Sulfate 2.5 Mg Ampul.Neb 3 Ml INHALATION 3 ml Q6HRT JAMEL Administration Amlodipine Besylate 10 mg 09/05/24 09:00 09/05/24 08:37 Amlodipine Besylate 5 Mg Tablet BY MOUTH 10 mg DAILY JAMEL Administration Artificial Tears 1 drop 09/05/24 04:35 Artificial Tears Ophth Soln 15 Ml Bottle EACH EYE TID PRN dry eye(s) Aspirin 81 mg 09/05/24 09:00 09/05/24 08:37 Aspirin 81 Mg Enteric Tablet PO 81 mg DAILY JAMEL Administration Dextrose 12.5 gm 09/05/24 03:16 Dextrose 50% 25 Gm/50 Ml Syringe IV PUSH PRN PRN Hypoglycemia Protocol Enoxaparin Sodium 40 mg 09/05/24 09:00 09/05/24 08:37 Enoxaparin 40 Mg/0.4 Ml Syringe SUB-Q 40 mg DAILY JAMEL Administration Fish Oil 1 gm 09/05/24 09:00 09/05/24 08:36 [place] 3 Polyunsat Fatty Acids 1 Gm Cap PO 1 gm DAILY JAMEL Administration Fluticasone Propionate 2 spray 09/05/24 03:16 Fluticasone Propionate 0.05% Na Spr 16 Gm Btl (*Bkc) NASAL DAILY PRN nasal congestion Glucagon 1 mg 09/05/24 03:16 Glucagon For Inj 1 Mg Vial IM PRN PRN Hypoglycemia Protocol Glucose 15 gm 09/05/24 03:16 Glucose Oral Gel 15 Gm Of Glucse In 37.5 Gm Tube PO PRN PRN Hypoglycemia Protocol Guaifenesin 1,200 mg 09/05/24 09:00 09/05/24 08:36 Guaifenesin 12 Hr 600 Mg Tabcr PO 1,200 mg Q12HR JAMEL Administration Hydrochlorothiazide 12.5 mg 09/05/24 09:00 Hydrochlorothiazide 12.[address] [facility] Ceftriaxone Sodium 1 gm in 50 mls @ 100 mls/hr 09/05/24 21:00 Rocephin 1 Gm/Ns 50 Ml IVPB Q24H JAMEL Azithromycin 500 mg in 250 mls @ 250 mls/hr 09/05/24 22:00 Zithromax IVPB Q24H JAMEL Sodium Chloride 1,000 mls @ 100 mls/hr 09/05/24 03:14 09/05/24 04:09 Normal Saline Iv IV CONT 09/05/24 13:13 150 mls/hr .Q10H ONE Administration Dextrose 1,000 mls @ 100 mls/hr 09/05/24 03:16 Dextrose 5% 1,000 Ml IVPB PRN PRN Hypoglycemia Protocol Insulin Aspart 3 - 6 units 09/05/24 08:00 Insulin Aspart (*Bkc) 100 Units/Ml SUB-Q TIDWM [facility] Protocol Insulin Aspart 1 - 3 units 09/05/24 21:00 Insulin Aspart (*Bkc) 100 Units/Ml SUB-Q HS [facility] Protocol Irbesartan 300 mg 09/05/24 09:00 09/05/24 08:46 Irbesartan 150 Mg Tablet PO Not Given QAM [facility] Methylprednisolone Sodium Succinate 60 mg 09/05/24 04:00 09/05/24 08:45 Methylprednisolone Sod Succ 125 Mg Vial IV PUSH 60 mg Q6H JAMEL Administration Morphine Sulfate 2 mg 09/04/24 21:56 Morphine Sulfate (*Crx) 2 Mg/Ml Inj IV PUSH Q2H PRN Pain Rated 7-10 Ondansetron HCl 4 mg 09/04/24 21:56 Ondansetron Inj 4 Mg/2 Ml Vial IV PUSH Q4H PRN Nausea Pravastatin Sodium 80 mg 09/05/24 09:00 09/05/24 08:36 Pravastatin Sodium 20 Mg Tablet BY MOUTH [address] [facility] Administration Prednisolone Acetate 1 drop 09/05/24 09:00 09/05/24 08:37 Prednisolone Acetate 1% Ophth 5 Ml RIGHT EYE 1 drop TID JAMEL Administration Radiology Results: ITS Impressions Chest CTA 09/04/24 20:18 IMPRESSION: No CT evidence of acute pulmonary embolus. Scattered areas of tree-in-bud opacities and bronchial wall thickening, likely representing chronic inflammatory/infectious change. Scattered bronchial debris may represent mucoid impaction or aspiration. Labs Labs: Laboratory Results - last 24 hr 09/04/24 09/04/24 09/04/24 19:14 20:10 20:41 WBC 12.8 H RBC 5.33 Hgb 18.1 H D Hct 51.5 H MCV 96.6 MCH 34.0 MCHC 35.1 RDW 12.6 Plt Count 381 H MPV 9.8 Immature Gran % (Auto) 0.4 Neut % (Auto) 72.4 Lymph % (Auto) 16.8 L Roberts % (Auto) 6.6 Eos % (Auto) 3.4 Baso % (Auto) 0.4 Lymph # (Auto) 2.14 Roberts # (Auto) 0.8 H Eos # (Auto) 0.4 H Baso # (Auto) 0.1 Abs Immat Gran (auto) 0.05 H Absolute Neuts (auto) 9.3 H Absolute Nucleated RBC 0.000 Nucleated RBC % 0.0 PT 13.1 INR 0.9 APTT 24.7 Puncture Site Right radial ABG pH 7.466 H ABG pCO2 40.5 ABG pO2 48.6 L* ABG PO2/FiO2 Ratio 2.31 ABG HCO3 28.5 H ABG O2 Saturation 86.6 L* ABG O2 Content 20.1 ABG Base Excess 4.5 A-a Gradient 52.6 Oxyhemoglobin 85.0 L* Total Hemoglobin 16.9 O2 Delivery Device Room air O2 Liters/Min Not Reportable FiO2 21 Sodium 135 L Potassium 3.0 L Chloride 97 L Carbon Dioxide 28 Anion Gap 10 BUN 12 D Creatinine 0.70 Estim Creat Clear Calc 76 Estimated GFR > 60 Glucose 154 H POC Capillary Glucose Hemoglobin A1c Calcium 10.2 Total Bilirubin 0.8 AST 53 H ALT 63 H Alkaline Phosphatase 136 H Total Creatine Kinase Troponin I < 0.012 NT-Pro-B Natriuret Pep 66 Total Protein 9.0 H Albumin 4.9 Nasal MRSA (PCR) Influenza A (RT-PCR) Negative Influenza B (RT-PCR) Negative RSV (RT-PCR) Negative SARS-CoV-2 RNA (RT-PCR) Negative Group A Strep (PCR) 09/05/24 09/05/24 09/05/24 04:22 06:41 08:36 WBC 8.0 RBC 4.57 Hgb 15.5 H Hct 44.4 MCV 97.2 MCH 33.9 MCHC 34.9 RDW 12.5 Plt Count 333 MPV 10.4 Immature Gran % (Auto) Neut % (Auto) Lymph % (Auto) Roberts % (Auto) Eos % (Auto) Baso % (Auto) Lymph # (Auto) Roberts # (Auto) Eos # (Auto) Baso # (Auto) Abs Immat Gran (auto) Absolute Neuts (auto) Absolute Nucleated RBC Nucleated RBC % PT INR APTT Puncture Site ABG pH ABG pCO2 ABG pO2 ABG PO2/FiO2 Ratio ABG HCO3 ABG O2 Saturation ABG O2 Content ABG Base Excess A-a Gradient Oxyhemoglobin Total Hemoglobin O2 Delivery Device O2 Liters/Min FiO2 Sodium 134 L Potassium 3.2 L Chloride 100 Carbon Dioxide 28 Anion Gap 6 BUN 14 Creatinine 0.60 L Estim Creat Clear Calc 88 Estimated GFR > 60 Glucose 257 H POC Capillary Glucose 263 H Hemoglobin A1c 6.1 H Calcium 9.3 Total Bilirubin 0.4 AST 37 H ALT 44 H Alkaline Phosphatase 105 Total Creatine Kinase 207 H Troponin I NT-Pro-B Natriuret Pep Total Protein 7.0 Albumin 4.4 Nasal MRSA (PCR) Not detected Influenza A (RT-PCR) Influenza B (RT-PCR) RSV (RT-PCR) SARS-CoV-2 RNA (RT-PCR) Group A Strep (PCR) Not detected
[2024-09-05 17:12] LABS: Glucose Point of Care 299 mg/dl (65-105)
[2024-09-05] MEDS: INSULIN ASPART (*BKC) 100 UNITS/ML SUB-Q ×2 (17:19→21:11)
[2024-09-05] MEDS: AZITHROMYCIN 250 MG TABLET PO (22:20)
[2024-09-05 22:25] LABS: Glucose Point of Care 244 mg/dl (65-105)
[2024-09-06] VITALS (7 sets, daily range): BP systolic 123; BP diastolic 63; PULSE 98–110; RESP 18–20; TEMP 36.5; O2SAT 91–93
[2024-09-06] MEDS: IPRATROPIUM 0.5 MG/ALBUTEROL SULFATE 2.5 MG AMPUL.NEB 3 ML INHALATION ×3 (02:45→13:41)
[2024-09-06 07:55] LABS: Glucose Point of Care 213 mg/dl (65-105)
[2024-09-06] MEDS: amLODIPine BESYLATE 5 MG TABLET 10 MG BY MOUTH (08:16)
[2024-09-06] MEDS: PRAVASTATIN SODIUM 20 MG TABLET 80 MG BY MOUTH (08:16)
[2024-09-06] MEDS: ENOXAPARIN 40 MG/0.4 ML SYRINGE SUB-Q (08:17)
[2024-09-06] MEDS: guaiFENesin 12 HR 600 MG TABCR 1200 MG PO (08:17)
[2024-09-06] MEDS: IRBESARTAN 150 MG TABLET 300 MG PO (08:17)
[2024-09-06] MEDS: ASPIRIN 81 MG ENTERIC TABLET PO (08:17)
[2024-09-06] MEDS: OMEGA 3 POLYUNSAT FATTY ACIDS 1 GM CAP PO (08:17)
[2024-09-06] MEDS: predniSONE 20 MG TABLET 40 MG PO (08:17)
[2024-09-06] MEDS: prednisoLONE ACETATE 1% OPHTH 5 ML 1 DROP RIGHT EYE ×3 (08:19→17:04)
[2024-09-06] MEDS: INSULIN ASPART (*BKC) 100 UNITS/ML SUB-Q ×3 (08:24→17:02)
[2024-09-06 11:42] LABS: Glucose Point of Care 250 mg/dl (65-105)
--- NOTE | 2024-09-06 16:43 | P.DS_ITS ---
DS: Admitting Diagnosis Discharge Date 09/06/24 Admitting Diagnosis Cough DS: Discharge Diagnosis Discharge Diagnosis (1) Hypoxia: Code(s): R09.02 - Hypoxemia Status: Acute (2) Acute bronchitis: Code(s): J20.9 - Acute bronchitis, unspecified Status: Acute (3) Suspected chronic obstructive pulmonary disease based on initial evaluation: Code(s): J44.9 - Chronic obstructive pulmonary disease, unspecified Status: Acute (4) Mild dehydration: Code(s): E86.0 - Dehydration Status: Acute (5) Hypokalemia: Code(s): E87.6 - Hypokalemia Status: Acute (6) Elevated LFTs: Code(s): R79.89 - Other specified abnormal findings of blood chemistry Status: Acute (7) Polycythemia: Code(s): D75.1 - Secondary polycythemia Status: Acute (8) Prediabetes: Code(s): R73.03 - Prediabetes Status: Acute (9) Hypertension: Code(s): I10 - Essential (primary) hypertension Status: Acute (10) Hyperlipidemia: Code(s): E78.5 - Hyperlipidemia, unspecified Status: Acute (11) Tobacco dependence: Code(s): F17.200 - Nicotine dependence, unspecified, uncomplicated Status: Acute DS: Summary Hospital Course Reason for hospitalization: 64yo female with tobacco abuse, COPD, HTN and pre-DM here for cough and SOB. Please see H&P for details. Hospital Course: The patient presented with cough, congestion, and shortness of breath. No fevers. Mild hypoxia intially but easily weaned to room air. WBC was elevated at 12K but normalized with treatment. Hgb 18 felt related to hypoxia and dehydration. With fluids, Hgb dropped to 15. CTA chest was negative of PE but showed scattered tree-in-bud opacities and bronchial wall thickening consistent with chronic inflammatory/infectious changes and scattered bronchial debris possibly mucoid impaction or aspiration. MRSA nasal swab negative. influenza, COVID and RSV PCR negative. She was started on IV abx, scheduled bronchodilators and methylprednisolone. Cornet and Mucinex ordered to help mobilize secretions. Smoking cessation was discussed multiple times. Potassium was low and was replaced. EKG showing sinus tachycardia (113), LAE, low voltage and possible anterior PA. ABG 7.46/40/48 consistent with a venous draw. She was easily weaned to room air. AST and ALT are mildly elevated but trending down on repeat. Possibly related to viral illness. Glucose elevated related to steroids. A1c was 6.1%. She was covered with sliding scale insulin, Accu-Cheks, and hypoglycemic protocol. She had clincal improvement. She overall did well and was able to be discharged on 09/06/24. Status at Discharge Cognitive/behavioral status at discharge: stable Time Spent with Patient Time attestation: Total time spent providing and/or coordinating discharge services: 34 minutes Time spent: Greater than 30 minutes Exam Narrative: AF 97.7 123/63 105 20 93%ra Gen - NARD Chest -left base faint crackles o/w clear, nml RR CV - RRR S1/S2 Abd - Soft, NT/ND, Positive BS Ext - No pedal edema Psych - Nml mood and affect Skin - Warm and dry DS: Data Data Completed and Pending Labs on day of discharge: Labs from last 24 hours 09/06/24 09/06/24 09/05/24 11:39 07:43 22:16 POC Capillary Glucose 250 H 213 H Ur L.pneumophila Ag Pending Urine Pneumococcal Ag Pending 09/05/24 09/05/24 21:10 17:08 POC Capillary Glucose 244 H 299 H Ur L.pneumophila Ag Urine Pneumococcal Ag Discharge Plan Discharge Attending physician on discharge: Osmin Martinez Discharging Clinician: Osmin Martinez Anticipated Discharge Date/Time: 09/06/24 17:04 Patient Disposition: Home, Self-Care Activity: as tolerated Diet: heart healthy Discharge Instructions: Stop using all products that contain tobacco or nicotine. Please complete your antibiotic course even if you are starting to feel well. Contact your doctor or call 911 and come to the Emergency Room if you have increasing shortness of breath, fevers or other worrisome symptoms. Avoid NSAIDs (ibuprofen, naproxen, Aleve). Tylenol is safe to take. Follow-up with your primary care provider in 1-2 weeks. Please call for appointment. Thank you for using [facility] for your health care needs. Patient Instructions: Antibiotic Form Patient Language: Citizen Of [place] Stand Alone Forms: General Discharge Information Follow-up/Referrals: Caroline Garcia APRN [Primary Care Provider] - Call for Appointment Discharge Medications: New guaifenesin [Mucus Relief ER] 600 mg Tablet Extended Release 12hr 600 mg PO Q12HR Qty: 20 0RF prednisone 20 mg Tablet 40 mg PO DAILY@0800 3 Days Qty: 6 0RF albuterol sulfate 90 mcg/actuation HFA aerosol inhaler 2 puff inhalation QID PRN (Reason: Shortness Of Breath Or Wheezing) Qty: 1 0RF azithromycin [Zithromax] 250 mg Tablet 250 mg PO HS Qty: 3 0RF amoxicillin-pot clavulanate 875-125 mg tablet 1 tablet PO Q12H Qty: 10 0RF Continued fluticasone propionate [Allergy Relief (fluticasone)] 50 mcg/actuation spray,suspension 2 spray intranasal DAILY PRN (Reason: nasal congestion) Rx Instructions: administer into each nostril prednisolone acetate 1 % drops,suspension 1 drp RIGHT EYE TID Artificial Tears (cmc) 1 % drops 1 drp RIGHT EYE BID-TID PRN (Reason: dry eye(s)) aspirin [Abdelrahman Low Dose Aspirin] 81 mg Tablet,Delayed Release (Dr/Ec) 81 mg PO DAILY omega-3 fatty acids [Fish Oil Concentrate] 1,000 mg capsule 1,000 mg PO DAILY Qty: 90 1RF pravastatin 80 mg tablet See Rx Instructions .ROUTE .COMPLEX Qty: 90 0RF Dose Instruction: Take 1 tablet by mouth once daily Rx Instructions: Take 1 tablet by mouth once daily amlodipine 10 mg tablet See Rx Instructions .ROUTE .COMPLEX Qty: 90 0RF Dose Instruction: Take 1 tablet by mouth once daily Rx Instructions: Take 1 tablet by mouth once daily irbesartan-hydrochlorothiazide 300-12.5 mg tablet See Rx Instructions .ROUTE .COMPLEX Qty: 30 0RF Dose Instruction: Take 1 tablet by mouth once daily Rx Instructions: Take 1 tablet by mouth once daily Date of admission: 09/04/24 21:56 Primary Care Provider: Caroline Garcia Admitting Provider: Kanu Aparicio Attending physician on admission: Kanu Aparicio Condition: Stable Hospitalist MIPS Heart Failure (Exclusion) Patient has history of Heart Transplant or Left Ventricular Assistive Device?: No IF YES, STOP HERE Heart Failure (Qualifier) Patient has current or prior documentation of LVEF less than or equal to 40%, or mod/servere depressed LVSF?: No IF NO, STOP HERE
[2024-09-06 17:02] LABS: Glucose Point of Care 274 mg/dl (65-105)
[2024-09-07 10:22] LABS: Estimated CRCL calculation 61 ml/min; Estimated Glomerular Filt Rate > 60
[2024-09-08 17:24] LABS: Mycoplasma IgM Antibody Titer 281 U/mL
[2024-09-08 17:39] LABS: Pneumococcal Antigen Urine NOT DETECTED
== END 2024-09-06 17:42 | disposition home or self-care (01) ==
LOC: ANHED 22:11 → ANH3MEDSUR 09-06 15:37
PROVIDERS: Physician Assistant; Admitting Provider Internal Medicine; Emergency Provider Emergency Medicine; PCP Nurse Practitioner Family; Visit Provider Internal Medicine
DX: J20.9 Acute bronchitis, unspecified (principal); R09.02 Hypoxemia; F17.210 Nicotine dependence, cigarettes, uncomplicated; E86.0 Dehydration; E87.6 Hypokalemia; R79.89 Other specified abnormal findings of blood chemistry; D75.1 Secondary polycythemia; E78.5 Hyperlipidemia, unspecified; I10 Essential (primary) hypertension; R73.03 Prediabetes; Z20.822 Contact with and (suspected) exposure to COVID-19; Z79.82 Long term (current) use of aspirin; Z79.899 Other long term (current) drug therapy
CPT/HCPCS: 36415; 36600; 71275; 80053; 82550; 82565; 82805; 82948; 83036; 83880; 84484; 85018; 85025; 85027; 85610; 85730; 86738; 87070; 87205; 87449; 87637; 87641; 87651; 87899; 92610; 93005; 94640; 94667; 96365; 96367; 96372; 96375; 96376; 99285; A9270; G0378; J0456; J0696; J1650; J1815; J2919; J7030; J7512; Q9967

== ENCOUNTER 2024-09-26 12:33 | Outpatient (CLI) | payer BC, SELFPAY ==
--- NOTE | ~2024-09-26 | XR_ITS ---
EXAMINATION: XR chest 2V DATE: 09/26/2024 13:07 INDICATION: Cough, unspecified. TECHNIQUE: Frontal and lateral views of the chest were obtained. COMPARISON: Chest 2 views 11/16/2011, chest CT 09/04/2024 FINDINGS: There is mild atelectasis in the lower lung zones. There is mild scarring at the lung apice s. There are lucencies in the lungs, consistent with emphysema. No pleural effusion or pneumothorax. The heart size is normal. IMPRESSION: 1. Mild atelectasis in the lower lung zones. 2. Emphysema. Reviewed, dictated and finalized at location B. [facility] [employer]
[2024-09-26 14:55] LABS: Influenza A QL RT-PCR Positive (Negative); Influenza B QL RT-PCR Negative (Negative); RSV RNA, RT-PCR Negative (Negative); SARS-CoV-2 RNA PCR Negative (Negative)
== END 2024-09-26 12:34 | disposition home or self-care (01) ==
PROVIDERS: PCP Nurse Practitioner Family; Visit Provider Nurse Practitioner Family
DX: R05.9 Cough, unspecified (principal); J18.9 Pneumonia, unspecified organism; R91.8 Other nonspecific abnormal finding of lung field; Z20.822 Contact with and (suspected) exposure to COVID-19
CPT/HCPCS: 71046; 87637